=== PATIENT | female | born 1950 | race Caucasian/White ===

== ENCOUNTER 2022-06-30 07:55 | Day surgery (SDC) | payer BC, MEDICARE ==
[2022-06-30] MEDS ORDERED: Glycopyrrolate 0.2 MG/ML 2 ML SDV IVPUSH ONE (09:00)
[2022-06-30] MEDS ORDERED: Cyanocobalamin (Vitamin B12) 1,000 MCG/ML SDV IM ONE (09:00)
[2022-06-30] MEDS ORDERED: Lactated Ringers 1,000 ML IV ONE (09:00)
[2022-06-30] MEDS ORDERED: Propofol 200 MG/20 ML SDV ONE (09:39)
[2022-06-30] MEDS ORDERED: fentaNYL 100 MCG/2 ML SDV ONE (09:40)
[2022-06-30] MEDS ORDERED: Midazolam 1 MG/ML 2 ML SDV ONE (09:40)
[2022-06-30] MEDS ORDERED: MVI, Adult with Vitamin K 10 ML, Thiamine 200 MG, Zinc/Copper/Manganese/Selenium 1 ML i... IV ONE ×4 (10:00)
[2022-06-30] MEDS ORDERED: Pantoprazole 40 MG Vial IVPUSH ONE (11:12)
[2022-06-30 12:16] VITALS: BP 118/52; PULSE 68
== END 2022-06-30 12:32 | disposition home or self-care (01) ==
LOC: JP.SDS 07:55
PROVIDERS: ATTEND Surgery
DX: R63.0 Anorexia (principal); G47.33 Obstructive sleep apnea (adult) (pediatric); E66.01 Morbid (severe) obesity due to excess calories; Z79.899 Other long term (current) drug therapy; Z79.83 Long term (current) use of bisphosphonates; Z88.8 Allergy status to other drugs, medicaments and biological substances; Z98.84 Bariatric surgery status; Z68.37 Body mass index [BMI] 37.0-37.9, adult
CPT/HCPCS: 87081; C9113; J2250; J2704; J3010; J3411; J3420; J3490; J7120

== ENCOUNTER 2023-06-07 05:55 | Day surgery (SDC) | payer MEDICARE, BC ==
[2023-06-07] MEDS ORDERED: fentaNYL 50 MCG/ML SDV ONE (06:59)
[2023-06-07] MEDS ORDERED: Propofol 200 MG/20 ML SDV ONE (06:59)
[2023-06-07] MEDS: Dextrose 5%-Lactated Ringers 1,000 ML IV SCH (07:08)
[2023-06-07] MEDS: Pantoprazole 40 MG Vial IVPUSH ONE (08:49)
== END 2023-06-07 10:05 | disposition home or self-care (01) ==
LOC: JP.SDS 05:55
PROVIDERS: ATTEND Surgery
DX: K31.A0 Gastric intestinal metaplasia, unspecified (principal); K22.70 Barrett's esophagus without dysplasia; K31.89 Other diseases of stomach and duodenum; K21.00 Gastro-esophageal reflux disease with esophagitis, without bleeding; I10 Essential (primary) hypertension; Z98.84 Bariatric surgery status
CPT/HCPCS: 43239; 88305; C9113; J2704; J3010; J7121